=== PATIENT | female | born 1990 | race Caucasian/White ===

== ENCOUNTER → 2021-01-17 | Day surgery (SDC) | payer BC ==
[~2021-01-17] MED LIST: ANAPROX DS550 MG PO; IBUPROFEN600 MG PO; NORCO 5-325 TA1 EACH PO; PERCOCET 5-3251 EACH PO
[2021-01-17 11:29] LABS: HEMOGLOBIN 12.3 gm/dl (12.3-15.3); RED BLOOD COUNT 3.8 M/UL (4.00-5.10)
== END | disposition home or self-care (01) ==
LOC: OR 10:36
PROVIDERS: Obstetrics & Gynecology
PROC: 10D17ZZ Extraction of Products of Conception, Retained, Via Natural or Artificial Opening (ICD-10-PCS; principal; 2021-01-17 11:45)
DX: O02.1 Missed abortion (principal); Z79.1 Long term (current) use of non-steroidal anti-inflammatories (NSAID); Z20.822 Contact with and (suspected) exposure to COVID-19
CPT/HCPCS: 81001; 85025; 86850; 86900; 86901; 87635; J1100; J1885; J2001; J2210; J2250; J2405; J2704; J3010; J7120